=== PATIENT | male | born 2000 | race Caucasian/White ===

== ENCOUNTER 2024-12-27 09:02 | Emergency (ER) | payer SELFPAY ==
[2024-12-27 09:04] VITALS: BP 125/89
[2024-12-27 09:53] VITALS: BMI 22.4
--- NOTE | 2024-12-27 09:55 | ED.GENMED ---
History of Present Illness
General
Chief Complaint: Rectal Bleeding
Source: patient
Exam Limitations: none
Time Seen by Provider: 12/27/24 09:38
History of Present Illness
History of Present Illness:
24-year-old male otherwise healthy presents complaining of 2 to 3 days worth of abdominal pain and bloody bowel movements. He notes bright red blood around brown stool. The stool sometimes loose. He denies any vomiting. He does note mid to right
sided abdominal pain. He drinks 3-4 beers daily. Does not use caffeine or NSAIDs regularly. He is moving his bowels about 4 times a day. He notes chills and sweats but no measurable fever.
Phy Exam
Physical Exam
Physical Exam:
General: Well-appearing male no acute respiratory distress
HEENT: Normocephalic atraumatic
Heart: Regular rate and rhythm
Lungs: Clear no wheeze
Abdomen is soft tender to the mid abdomen and right mid abdomen no guarding
Rectal exam: No fissures or hemorrhoids. Minimal stool in the rectum heme-negative
Course
Orders/Labs/Results
Orders:
Orders
12/27/24 09:52
CT Abd/pelvis W Iv Cont Urgent
Comment:
Reason For Exam: abodminal pain, bloody stools
12/27/24 09:54
Type+Screen Urgent
Complete Blood Count/With Diff Urgent
Comprehensive Metabolic Panel Urgent
Lipase Urgent
12/27/24 10:10
ABO2 Urgent
BBK Wristband Number:
Associate notified that ABO2 has been ordered: [id number]
Date: 12/27/24
Time: 10:03
Scrap Iron Cutter ID: [id number]
Abnormal Lab Results
12/27/24
09:54
MCH 32.4 H pg
(27.0-31.0)
Absolute Monos (auto) 0.7 H 10^3/uL
(0.1-0.6)
Monocytes % 9.6 H %
(1.7-9.3)
Albumin 5.1 H g/dl
(3.5-5.0)
12/27/24 09:54
12/27/24 09:54
Vital Signs
Initial and Last Documented VS:
Initial Vital Signs
Temp Pulse Resp BP Pulse Ox
97.9 F 90 18 125/89 96
12/27/24 09:04 12/27/24 09:04 12/27/24 09:04 12/27/24 09:04 12/27/24 09:04
Last Documented Vital Signs
Temp Pulse Resp BP Pulse Ox
97.9 F 90 18 125/89 96
12/27/24 09:04 12/27/24 09:04 12/27/24 09:04 12/27/24 09:04 12/27/24 09:58
MDM/Problems Addressed
Differential Diagnosis Includes:
Abdominal pain with bloody bowel movements. Consider anemia versus electrolyte abnormality versus colitis versus viral or foodborne illness
Check labs. CT pending
*Pulse Oximetry
SaO2: 96
Oxygen Mode of Delivery: Room air
Patient hypoxic: no
*Critical Care Note
Total Time (30-74mins, 75-104mins- exclusive of procedures): Not Applicable
Update Note
Update Note:
Workup here with negative CT and labs. Patient reexamined. He points out a bad tooth he has been dealing with. Right maxillary second molar has a large cavity. There is mild gingival tissue tenderness but no fluctuance. No trismus or drooling.
Suspect possible colitis given loose bloody stool but no evidence of acute inflammatory process on CT. Given multiple issues will cover with Augmentin for the tooth in the gut. Recommend he follow-up with his doctor and dentist. He also admits to
drinking 3-4 alcoholic beverages daily. Recommend he hold off on this as he may have gastritis as well
ED Attending Note
-
Portions of this chart may have been created with voice recognition software.� Occasional wrong word or��sound alike� substitutions may have occurred due to the inherent limitations of voice recognition software.
Discharge Plan
Departure
Patient Disposition: Home (Routine Discharge)
Date of Disposition: 12/27/24
Time of Disposition: 12:29
Patient with high blood pressure during this ER visit?: No
Discharge Problem:
Abdominal pain
Instructions: Colitis
Prescriptions:
New
amoxicillin-pot clavulanate 875-125 mg tablet
1 tab PO BID Qty: 14 0RF
omeprazole 40 mg capsule,delayed release(DR/EC)
40 mg PO DAILY Qty: 14 0RF
Referrals:
NONE,* [Family Provider, Internal Medicine]
Activity Restrictions/Additional Instructions:
Limit alcohol. Use Prilosec as directed. Use Augmentin as directed. Return if worse otherwise follow-up with your doctor.
Interventions
Interventions:
*Risk Screen - Suicide Last Done: 12/27/24 09:04
*General Assessment Last Done: 12/27/24 09:38
*Neglect/Abuse Screening Last Done: 12/27/24 09:04
Discharge Date and Time
Print Language: TAJIK
[2024-12-27 10:04] LABS: Hematocrit 45.5 % (39.0-52.0); Hemoglobin 15.8 g/dL (13.0-18.0); Mean Corp Hgb Conc. 34.7 g/dL (33.0-37.0); Mean Corpuscular Volume 93.4 fL (80.0-94.0); Nucleated Red Blood Cells % 0 % (-); Platelet Count 330 10^3/uL (130-400); Red Cell Dist. Width 11.9 % (11.5-14.5)
[2024-12-27 10:18] LABS: ALT (SGPT) 30 U/L (0-50); AST (SGOT) 26 U/L (17-59); Albumin 5.1 g/dl (3.5-5.0); Alkaline Phosphatase 47 U/L (38-126); Blood Urea Nitrogen 14 mg/dl (9-20); Calcium 10.0 mg/dl (8.4-10.2); Carbon Dioxide 28 mmol/L (22-30); Chloride 104 mmol/L (98-107); Estimated Creatinine Clearance > 125 ml/min; Glucose 83 mg/dl (70-99); Lipase 67 U/L (23-300); Potassium 4.4 mmol/L (3.5-5.1); Sodium 139 mmol/L (135-145); Total Protein 7.9 g/dl (6.3-8.2); eGFR > 60.00
== END 2024-12-27 12:45 | disposition home or self-care (01) ==
LOC: EMR 09:02
PROVIDERS: Physician Assistant; EMERGENCY PHYSICIAN Emergency Medicine
DX: R10.9 Unspecified abdominal pain (principal); K08.89 Other specified disorders of teeth and supporting structures; F10.90 Alcohol use, unspecified, uncomplicated
CPT/HCPCS: 99284; 74177; 80053; 83690; 85025; 86850; 86900; 86901; Q9967